=== PATIENT | male | born 1955 | race Hispanic/Latino ===

== ENCOUNTER 2021-12-13 08:36 | Outpatient (CLI) | payer MEDICARE, OTHER, SELFPAY ==
--- NOTE | ~2021-12-13 | MR_ITS ---
EXAMINATION: MR lumbar spine wo con DATE: 12/13/2021 09:27 INDICATION: Low back pain. TECHNIQUE: Magnetic resonance imaging (MRI) of the lumbar spine was performed without intravenous con trast. Sequences included sagittal T2-weighted FSE, sagittal T2-weighted FS FSE, sagittal T1-weighted FSE, and axial T2-weighted FSE. COMPARISON: None FINDINGS: There is 6 degrees levocurvature of lumbar spine. There is 3 mm retrolisthesis of L5 on S1. Vertebral body heights are normal. There is mildly decreased disc height at L4-L5 and severely decre ased disc height at L5-S1 with endplate remodeling. The distal spinal cord signal intensity is normal . The conus medullaris is at L1. Partially visualized is a 4.2 cm cyst in left kidney. The following disc levels are specifically discussed: L1-L2: The disc does not extend beyond the endplate margin. There is mild right facet joint osteoarth ritis. There is no neural foraminal stenosis. There is no central canal stenosis. L2-L3: The disc is mildly bulging. There is moderate right and mild left facet joint osteoarthritis. There is mild bilateral neural foraminal stenosis. There is no central canal stenosis. L3-L4: The disc is mildly bulging. There is moderate bilateral facet joint osteoarthritis. There is m ild bilateral neural foraminal stenosis. There is no central canal stenosis. L4-L5: The disc is bulging. There is moderate bilateral facet joint osteoarthritis. There is mild rig ht and moderate left neural foraminal stenosis. There is mild central canal stenosis. There is modera te stenosis of right lateral recess. L5-S1: The disc is bulging and has an annular fissure. There is severe right and moderate left facet joint osteoarthritis. There is moderate bilateral neural foraminal stenosis. There is mild central ca nal stenosis. IMPRESSION: 1. Severe lower lumbar spondylosis. Reviewed, dictated and finalized at location B.
== END 2021-12-13 08:37 | disposition home or self-care (01) ==
LOC: ANHIMG 08:41
PROVIDERS: PCP Internal Medicine
DX: M47.896 Other spondylosis, lumbar region (principal)
CPT/HCPCS: 72148

== ENCOUNTER → 2023-02-23 07:56 | Outpatient (CLI) | payer MEDICARE, OTHER, SELFPAY ==
--- NOTE | ~2023-02-23 | MR_ITS ---
EXAMINATION: MR elbow LT wo con DATE: 02/23/2023 09:19 INDICATION: Left elbow pain. TECHNIQUE: Magnetic resonance imaging (MRI) of the left elbow was performed without intravenous contr ast. Sequences included coronal, axial, and sagittal PD-weighted FS FSE and coronal, axial, and sagit darrick PD-weighted FSE. COMPARISON: None FINDINGS: Osseous/other: Bone alignment is normal. No fracture. There is shallow partial-thickness cartilage loss in the elbow joint. Osteophytes are noted. Tendons: Biceps tendon and brachialis tendon are normal. There is severe tendinopathy of common flexor tendon at medial humeral epicondyle. There is severe tendinopathy and partial tear of common extensor tendon at lateral humeral epicondyle. Ligaments: There are partial tears of radial collateral ligament and lateral ulnar collateral ligament character ized by increased signal intensity and disorganized fibers. Ulnar collateral ligament is intact. Cubital tunnel: Ulnar nerve demonstrates increased signal, which may be seen with neuropathy. Fluid: There is a small elbow joint effusion. IMPRESSION: 1. Severe tendinopathy and partial tear of common extensor tendon at lateral humeral epicondyle. 2. Sprains of radial collateral ligament and lateral ulnar collateral ligament. 3. Severe tendinopathy of common flexor tendon at medial humeral epicondyle. 4. Mild elbow joint chondrosis. 5. Small elbow joint effusion. Reviewed, dictated and finalized at location E. IMPRESSION: 1. Severe tendinopathy and partial tear of common extensor tendon at lateral hu meral epicondyle. 2. Sprains of radial collateral ligament and lateral ulnar collateral ligament. 3. Severe tendinopathy of common flexor tendon at medial humeral epicondyle. 4. Mild elbow joint chondrosis. 5. Small elbow joint effusion.
== END ==
PROVIDERS: PCP Orthopaedic Surgery; Visit Provider Orthopaedic Surgery
DX: M25.422 Effusion, left elbow (principal); S53.432A Radial collateral ligament sprain of left elbow, initial encounter; X58.XXXA Exposure to other specified factors, initial encounter
CPT/HCPCS: 73221

== ENCOUNTER 2025-01-01 10:44 | Outpatient (CLI) | payer MEDICARE, OTHER, SELFPAY ==
--- NOTE | ~2025-01-01 | MR_ITS ---
EXAMINATION: MR lumbar spine wo con DATE: 01/01/2025 11:19 INDICATION: Left foot drop, lumbar spine pain and disc bulge TECHNIQUE: Magnetic resonance imaging (MRI) of the lumbar spine was performed without intravenous con trast. Sequences included sagittal T2-weighted FSE, sagittal T2-weighted FS FSE, sagittal T1-weighted FSE, and axial T2-weighted FSE. COMPARISON: None FINDINGS: 5 degrees lower lumbar levocurvature. 2 mm retrolisthesis L4 on L5 and 3 mm retrolisthesis L5 on S1. Vertebral body heights are normal. There are new well-defined T2 hyperintense lesions centrally in th e L5 and S1 vertebral bodies consistent with the end of likely postoperative tracks extending from po sterior laterally on the right at S1 and posterolateral to the left pedicle at L5 which suggests thes e may be related to prior thermal ablations. Tiny annular fissure at L3-L4 with preserved disc height . Minimal progression of mild to moderate disc height loss at L4-L5 with annular fissure and new disc extrusion. Unchanged severe disc height loss with degenerative endplate remodeling at L5-S1. The con us medullaris terminates at L1-L2. There is normal signal in the caudal spinal cord. Bilateral renal cysts measuring up to 4.9 cm at the left kidney. The following disc levels are specifically discussed : T12-L1: The disc does not extend beyond the endplate margin. There is moderate bilateral facet joint osteoarthritis. There is no neural foraminal stenosis. There is no central canal stenosis. Minimal L1-L2: Small left foraminal zone disc protrusion. There is left and moderate right facet joint osteoa rthritis. There is minimal left neural foraminal stenosis. There is no central canal stenosis. L2-L3: Disc is mildly bulging.. There is right and mild left facet joint osteoarthritis. There is mil d bilateral neural foraminal stenosis. There is no central canal stenosis. L3-L4: Disc is bulging with tiny right foraminal zone annular fissure. There is moderate left and mod erate to severe right facet joint osteoarthritis. There is moderate bilateral neural foraminal stenos is. There is mild central canal stenosis along with narrowing at the left and right lateral recesses. L4-L5: Disc is bulging with annular fissure and new disc extrusion which begins centrally and extends inferiorly to the left lateral recess. There is moderate bilateral facet joint osteoarthritis. There is moderate to severe bilateral neural foraminal stenosis. There is mild central canal stenosis. The re is severe narrowing of the left lateral recess with mass effect exerted upon the traversing left S 1 nerve root. L5-S1: Disc is bulging with annular fissure. There is severe bilateral facet joint osteoarthritis. Th ere is severe left and moderate to severe right neural foraminal stenosis. There is mild central davy l stenosis. IMPRESSION: 1. Severe lower lumbar spondylosis with new moderate-sized disc extrusion at L4-L5 which severely braeden rows the left lateral recess at this level exerting mass effect upon the traversing left S1 nerve puneet t. Additionally there is severe stenosis along the course of the more distal nerve at the left L5-S1 neural foramen. 2. New postoperative changes suggestive of thermal ablation at the central aspect of the L5 and S1 ve rtebral bodies. Reviewed, dictated and finalized at location A. IMPRESSION: 1. Severe lower lumbar spondylosis with new moderate-sized disc extrusion at L4 -L5 which severely narrows the left lateral recess at this level exerting mass effect upon the traversing left S1 nerve root. Additionally there is severe emiliano nosis along the course of the more distal nerve at the left L5-S1 neural forame n. 2. New postoperative changes suggestive of thermal ablation at the central aspe ct of the L5 and S1 vertebral bodies.
== END 2025-01-01 10:45 | disposition home or self-care (01) ==
DX: M51.16 Intervertebral disc disorders with radiculopathy, lumbar region (principal); M21.372 Foot drop, left foot; M47.896 Other spondylosis, lumbar region
CPT/HCPCS: 72148